=== PATIENT | female | born 1980 | race Asian ===

== ENCOUNTER → 2023-03-31 | Outpatient (CLI) | payer MEDICAID | END | disposition home or self-care (01) | LOC: LAB 10:30 | PROVIDERS: ATTEND Obstetrics & Gynecology | DX: D06.9 Carcinoma in situ of cervix, unspecified (principal) ==

== ENCOUNTER 2023-06-11 12:47 | Observation (INO) | payer MEDICAID ==
[2023-06-11] MEDS ORDERED: PREN-96 PO (13:38)
== END 2023-06-11 14:56 | disposition home or self-care (01) ==
LOC: LDRP 12:47
PROVIDERS: ADMIT Obstetrics & Gynecology; ATTEND Obstetrics & Gynecology
DX: O62.9 Abnormality of forces of labor, unspecified (principal); O46.93 Antepartum hemorrhage, unspecified, third trimester; Z3A.38 38 weeks gestation of pregnancy
CPT/HCPCS: 59025; 76818; 81002; 94760; G0378

== ENCOUNTER 2023-06-14 06:55 | Inpatient (IN) | payer MEDICAID ==
[~2023-06-14] VITALS: Ht 160 cm; Wt 62.1 kg
[~2023-06-14 06:55] MED LIST: PREN-96 PO
[2023-06-14] MEDS ORDERED: LIDOCAINE HCL 2 %PF INJ 10ML AMP IJ ONE (07:15)
[2023-06-14] MEDS ORDERED: ePHEDrine SULFATE 50 MG/ML AMP IV ONE (07:15)
[2023-06-14] MEDS ORDERED: BUTORPHANOL TARTRATE 2 MG/1 ML VIAL IV PRN ×2 (07:15)
[2023-06-14] MEDS ORDERED: LACTATED RINGER'S 1,000 ML IV SCH (07:15)
[2023-06-14] MEDS ORDERED: WITCH HAZEL-GLYCERIN PAD TOP PRN (07:15)
[2023-06-14] MEDS ORDERED: PROMETHAZINE HCL 25 MG/ML 1ML IV PRN (07:15)
[2023-06-14] MEDS ORDERED: LIDOCAINE 2%HCL (LOCAL ANESTH.) INJ 20ML MDV IJ PRN (07:15)
[2023-06-14] MEDS ORDERED: fentaNYL CITRATE 100 MCG/2 ML VL IV ONE (07:15)
[2023-06-14] MEDS ORDERED: LACTATED RINGER'S 1,000 ML IV ONE (07:15)
[2023-06-14] MEDS ORDERED: DERMOPLAST 60ML BOTTLE TOP PRN (07:15)
[2023-06-14] MEDS ORDERED: NALOXONE HCL 0.4 MG/ML VIAL IV ONE (07:15)
[2023-06-14] MEDS ORDERED: PHISODERM TOP SOLN 240ML BTL TOP PRN (07:15)
[2023-06-14] MEDS ORDERED: LACT. RINGERS/OXYTOCIN 20UNITS 500 ML IV ONE ×2 (07:30→08:00)
[2023-06-14] MEDS ORDERED: TERBUTALINE SULFATE 1 MG/ML 1ML VIAL SC PRN (07:30)
[2023-06-14 07:42] LABS: Basophils # (auto) 0 10 ^3/uL (0-0.2); Basophils % (auto) 0.3 % (0.0-2.0); Eosinophils # (auto) 0 10 ^3/uL (0-0.8); Eosinophils % (auto) 0.4 % (0.0-7.0); Hematocrit 32.5 % (36.0-46.0); Hemoglobin 10.6 g/dL (12.2-16.2); Lymphocytes # (auto) 1.8 10 ^3/uL (0.4-5.4); Lymphocytes % (auto) 16.5 % (10.0-50.0); Mean Corpuscular Hemoglobin 27.2 pg (28.0-32.0); Mean Corpuscular Hgb Conc. 32.6 g/dL (32.0-36.0); Mean Corpuscular Volume 83.6 fL (80.0-100.0); Monocytes # (auto) 0.6 10 ^3/uL (0-1.3); Monocytes % (auto) 5.2 % (0.0-12.0); Neutrophils # (auto) 8.5 10 ^3/uL (1.6-8.6); Neutrophils % (auto) 77.6 % (37.0-80.0); Nucleated Red Blood Cells % 0.1 %; Red Blood Cells 3.89 10^6/uL (4.0-5.20)
[2023-06-14 07:55] LABS: Alanine Aminotransferase 13 U/L (7-40); Albumin 3.7 g/dL (3.2-4.8); Alkaline Phosphatase 119 U/L (46-116); Anion Gap 9 (5-15); Aspartate Aminotransferase 14 U/L (13-40); BUN/Creatinine Ratio 9.1 (10.0-20.0); Bilirubin, Total 0.5 mg/dL (0.2-1.0); Blood Urea Nitrogen < 5 mg/dL (9-23); Calcium 8.7 mg/dL (8.5-10.1); Carbon Dioxide 21 mmol/L (20-30); Chloride 105 mmol/L (98-107); Glucose 77 mg/dL (74-106); Potassium 3.9 mmol/L (3.5-5.1); Sodium 135 mmol/L (136-145); Total Protein 6.6 g/dL (5.7-8.2)
[2023-06-14 07:56] LABS: INR 0.92 (0.9-1.15); Partial Thromboplastin Time 27.1 SEC (24.5-34.5); Prothrombin Time 9.7 sec (9.3-11.8)
[2023-06-14] MEDS ORDERED: ROPIVACAINE HCL 100 ML ONE (08:12)
[2023-06-14 09:23] LABS: Urine WBC None Seen /hpf (0 - 5)
[2023-06-14 09:37] LABS: Urine Bacteria NONE SEEN /hpf (None Seen); Urine Blood Negative /uL (Negative); Urine Clarity Clear (Clear); Urine Color Straw (Yellow); Urine Protein, UAD Negative (Negative); Urine Specific Gravity 1.007 (1.001-1.035); Urine Urobilinogen Normal (Negative)
[2023-06-14 09:40] LABS: Amphetamine Screen, Urine Neg (NEGATIVE); Barbiturate Scree,Urine Neg (NEGATIVE); Benzodiazephine Screen, Urine Neg (NEGATIVE)
[2023-06-14 09:41] LABS: Cannabinoid Screen, Urine Neg (NEGATIVE); Cocaine Screen, Urine Neg (NEGATIVE); Opiate Scree,Urine Neg (NEGATIVE); Phencyclidine Screen, Urine Neg (NEGATIVE)
[2023-06-14] MEDS ORDERED: LACT. RINGERS/OXYTOCIN 20UNITS 1,000 ML IV SCH (10:15)
[2023-06-14] MEDS ORDERED: ACETAMINOPHEN 325 MG TAB PO PRN (12:00)
[2023-06-14] MEDS ORDERED: ONDANSETRON ODT 4 MG TAB PO PRN (12:00)
[2023-06-14 14:30] VITALS: BP 105/60; PULSE 70; RESP 16; TEMP 97.7; O2SAT 99
[2023-06-14] MEDS: IBUPROFEN 600 MG TAB PO PRN (19:05)
[2023-06-14 19:18] VITALS: BP 115/62; PULSE 79; RESP 16; TEMP 98.6; O2SAT 97
[2023-06-14] MEDS: DOCUSATE SOD 100 MG CAP PO SCH (22:00)
[2023-06-14 23:00] VITALS: BP 104/62; PULSE 71; RESP 16; TEMP 98.6; O2SAT 98
[2023-06-15 03:00] VITALS: BP 95/61; PULSE 68; RESP 16; TEMP 98; O2SAT 96
[2023-06-15 06:06] LABS: RPR Non Reactive (Non Reactive)
[2023-06-15 07:00] VITALS: BP 104/62; PULSE 71; RESP 15; O2SAT 96
[2023-06-15 10:51] VITALS: BP 107/61; PULSE 77; RESP 17; TEMP 98.1; O2SAT 95
[2023-06-15] MEDS: IBUPROFEN 600 MG TAB PO PRN ×2 (11:15→22:41)
[2023-06-15] MEDS ORDERED: DOCU-265 PO (11:56)
[2023-06-15] MEDS ORDERED: FERR30CA PO (11:56)
[2023-06-15] MEDS ORDERED: IBU600T PO (11:56)
[2023-06-15 13:46] LABS: Basophils # (auto) 0 10 ^3/uL (0-0.2); Basophils % (auto) 0.2 % (0.0-2.0); Eosinophils # (auto) 0 10 ^3/uL (0-0.8); Eosinophils % (auto) 0.2 % (0.0-7.0); Hematocrit 27.2 % (36.0-46.0); Hemoglobin 8.9 g/dL (12.2-16.2); Lymphocytes # (auto) 1.6 10 ^3/uL (0.4-5.4); Lymphocytes % (auto) 12.6 % (10.0-50.0); Mean Corpuscular Hemoglobin 27.5 pg (28.0-32.0); Mean Corpuscular Hgb Conc. 32.6 g/dL (32.0-36.0); Mean Corpuscular Volume 84.2 fL (80.0-100.0); Monocytes # (auto) 0.6 10 ^3/uL (0-1.3); Red Blood Cells 3.23 10^6/uL (4.0-5.20); Red Cell Distribution Width 15.5 % (11.8-14.3); White Blood Cell 12.3 10^3/uL (4.4-10.8)
[2023-06-15 14:40] VITALS: BP 91/52; PULSE 88; RESP 15; TEMP 97.7; O2SAT 97
[2023-06-15 19:00] VITALS: BP 108/64; PULSE 73; RESP 16; TEMP 97.9; O2SAT 94
[2023-06-15] MEDS: DOCUSATE SOD 100 MG CAP PO SCH (22:41)
[2023-06-15 22:45] VITALS: BP 114/59; PULSE 79; RESP 18; TEMP 98.4; O2SAT 96
[2023-06-16 02:45] VITALS: BP 104/62; PULSE 68; RESP 16; TEMP 98; O2SAT 95
[2023-06-16 06:50] VITALS: BP 117/79; PULSE 84; RESP 16; TEMP 98; O2SAT 96
[2023-06-16 19:06] LABS: Treponema pallidum Ab (FTA-Ab) Non Reactive (Non Reactive)
== END 2023-06-16 08:23 | disposition home or self-care (01) | DRG 560 ==
LOC: LDRP 06:55
PROVIDERS: ADMIT Obstetrics & Gynecology; ATTEND Obstetrics & Gynecology
PROC: 10E0XZZ Delivery of Products of Conception, External Approach (ICD-10-PCS; principal; 2023-06-14)
PROC: 0KQM0ZZ Repair Perineum Muscle, Open Approach (ICD-10-PCS; 2023-06-14)
PROC: 3E0R3BZ Introduction of Anesthetic Agent into Spinal Canal, Percutaneous Approach (ICD-10-PCS; 2023-06-14)
PROC: 00HU33Z Insertion of Infusion Device into Spinal Canal, Percutaneous Approach (ICD-10-PCS; 2023-06-14)
DX: O69.81X0 Labor and delivery complicated by cord around neck, without compression, not applicable or unspecified (principal); Z37.0 Single live birth; R71.0 Precipitous drop in hematocrit; O70.1 Second degree perineal laceration during delivery; Z3A.39 39 weeks gestation of pregnancy
CPT/HCPCS: 36415; 59025; 59409; 62282; 80053; 80307; 81001; 81002; 85025; 85610; 85730; 86592; 86850; 86900; 86901; 94760; 96360; 96361; 96365; 96366; G0378; J2590

== ENCOUNTER → 2023-07-25 | Outpatient (CLI) | payer MEDICAID ==
[~2023-07-25] MED LIST changes: +DOCU-265 PO; +FERR30CA PO; +IBU600T PO
== END | disposition home or self-care (01) ==
LOC: LAB 08:33
PROVIDERS: ATTEND Obstetrics & Gynecology
DX: R87.613 High grade squamous intraepithelial lesion on cytologic smear of cervix (HGSIL) (principal); R87.810 Cervical high risk human papillomavirus (HPV) DNA test positive

== ENCOUNTER → 2023-12-12 | Outpatient (CLI) | payer MEDICAID ==
[~2023-12-12] VITALS: Ht 160 cm; Wt 53.1 kg
[2023-12-12 11:56] LABS: Basophils # (auto) 0.1 10 ^3/uL (0-0.2); Eosinophils # (auto) 0.2 10 ^3/uL (0-0.8); Eosinophils % (auto) 4.3 % (0.0-7.0); Hematocrit 31.3 % (36.0-46.0); Lymphocytes # (auto) 1.9 10 ^3/uL (0.4-5.4); Lymphocytes % (auto) 34.9 % (10.0-50.0); Mean Corpuscular Hemoglobin 27.2 pg (28.0-32.0); Mean Corpuscular Volume 85.2 fL (80.0-100.0); Monocytes # (auto) 0.4 10 ^3/uL (0-1.3); Monocytes % (auto) 7.5 % (0.0-12.0); Neutrophils # (auto) 2.8 10 ^3/uL (1.6-8.6); Neutrophils % (auto) 52.3 % (37.0-80.0); Nucleated Red Blood Cells % 0.1 %; Red Blood Cells 3.68 10^6/uL (4.0-5.20); Red Cell Distribution Width 14.7 % (11.8-14.3); White Blood Cell 5.4 10^3/uL (4.4-10.8)
[2023-12-12 12:03] LABS: Urine Bacteria FEW /hpf (None Seen); Urine Blood 1+ /uL (Negative); Urine Clarity Clear (Clear); Urine Color Light-Yellow (Yellow); Urine Mucus FEW (None Seen); Urine Protein, UAD Negative (Negative); Urine Urobilinogen Normal (Negative); Urine WBC 8 /hpf (0 - 5); Urine pH 5.5 (5.0-9.0)
[2023-12-12 12:12] LABS: INR 0.97 (0.9-1.15); Partial Thromboplastin Time 27.1 SEC (24.5-34.5); Prothrombin Time 10.3 sec (9.3-11.8)
[2023-12-12 12:25] LABS: Albumin 4.6 g/dL (3.2-4.8); Alkaline Phosphatase 83 U/L (46-116); Anion Gap 5 (5-15); Aspartate Aminotransferase 9 U/L (13-40); BUN/Creatinine Ratio 12.3 (10.0-20.0); Blood Urea Nitrogen 8 mg/dL (9-23); Calcium 9.2 mg/dL (8.5-10.1); Carbon Dioxide 24 mmol/L (20-30); Chloride 108 mmol/L (98-107); Glucose 85 mg/dL (74-106); Potassium 3.9 mmol/L (3.5-5.1); Sodium 137 mmol/L (136-145)
[2023-12-12 12:26] LABS: Bilirubin, Total 0.5 mg/dL (0.2-1.0); Total Protein 7.6 g/dL (5.7-8.2)
[2023-12-12 12:33] LABS: Alanine Aminotransferase 9 U/L (7-40)
== END | disposition home or self-care (01) ==
LOC: LAB 11:31 → EDSTATUS 12-15 14:16
PROVIDERS: ATTEND Obstetrics & Gynecology
DX: D06.9 Carcinoma in situ of cervix, unspecified (principal)
CPT/HCPCS: 36415; 80053; 81001; 81025; 84702; 85025; 85610; 85730; 86850; 86900; 86901